=== PATIENT | male | born 1990 | race Caucasian/White ===

== ENCOUNTER 2018-06-20 06:42 | Emergency (ER) | payer OTHER ==
[~2018-06-20] VITALS: Ht 182.9 cm; Wt 104.3 kg
[2018-06-20] MEDS ORDERED: GENTAK5 ML INTRAOCULR (08:11)
[2018-06-20 08:36] VITALS: BP 125/84
== END 2018-06-20 08:36 | disposition home or self-care (01) ==
LOC: M.ERS 06:42
DX: Z77.098 Contact with and (suspected) exposure to other hazardous, chiefly nonmedicinal, chemicals (principal); F17.210 Nicotine dependence, cigarettes, uncomplicated